=== PATIENT | male | born 1995 | race Caucasian/White ===

== ENCOUNTER 2022-01-27 12:52 | Emergency (ER) | payer OTHER ==
[~2022-01-27] VITALS: Ht 185.4 cm; Wt 76.7 kg
[2022-01-27 13:00] VITALS: BP 146/95
--- NOTE | 2022-01-27 14:40 | NUR ---
[facility] ATTEMPTED TO EVALUATE PT, NO ANSWER IN LOBBY/OUTSIDE
--- NOTE | 2022-01-27 14:46 | NUR ---
2ND ATTEMPT TO BRING PT BACK, NO ANSWER IN LOBBY/OUTSIDE
--- NOTE | 2022-01-27 14:52 | NUR ---
LAST ATTEMPT TO BRING PT BACK, NO ANSWER IN LOBBY/OUTSIDE. PATIENT LEFT WITHOUT BEING SEEN BY CAMILA LONG. NO FURTHER CARE PROVIDED FOR PATIENT.
== END 2022-01-27 14:52 | disposition left against medical advice (07) ==
LOC: MED 12:52
DX: R51.9 Headache, unspecified (principal); Z53.21 Procedure and treatment not carried out due to patient leaving prior to being seen by health care provider